=== PATIENT | male | born 1955 | race Caucasian/White ===

== ENCOUNTER 2022-07-05 05:33 | Inpatient (IN) | payer SELFPAY ==
[~2022-07-05] VITALS: Ht 165.1 cm; Wt 91.7 kg
[2022-07-05] MEDS ORDERED: SODIUM CHLORIDE 0.9% 1,000 ML IV ONE ×2 (07:15)
[2022-07-05 08:01] LABS: Basophils # (auto) 0.1 10 ^3/uL (0-0.2); Eosinophils # (auto) 0 10 ^3/uL (0-0.8); Lymphocytes # (auto) 2.3 10 ^3/uL (0.4-5.4); Monocytes # (auto) 1.3 10 ^3/uL (0-1.3)
[2022-07-05 08:04] LABS: Basophils % (auto) 0.6 % (0.0-2.0); Eosinophils % (auto) 0.3 % (0.0-7.0); Hematocrit 52.3 % (41.0-53.0); Hemoglobin 17.8 g/dL (13.5-17.5); Lymphocytes % (auto) 18.2 % (10.0-50.0); Mean Corpuscular Hemoglobin 32.9 pg (28.0-32.0); Mean Corpuscular Hgb Conc. 34.1 g/dL (32.0-36.0); Mean Corpuscular Volume 96.4 fL (80.0-100.0); Monocytes % (auto) 10.4 % (0.0-12.0); Neutrophils # (auto) 9.1 10 ^3/uL (1.6-8.6); Neutrophils % (auto) 70.5 % (37.0-80.0); Nucleated Red Blood Cells % 0.3 %; Red Blood Cells 5.42 10^6/uL (4.5-5.90); Red Cell Distribution Width 13.2 % (11.8-14.3); White Blood Cell 12.8 10^3/uL (4.4-10.8)
[2022-07-05 08:20] LABS: Urine Bacteria NONE SEEN /hpf (None Seen); Urine Blood 1+ /uL (Negative); Urine Mucus MODERATE (None Seen); Urine Specific Gravity 1.035 (1.001-1.035); Urine WBC 1 /hpf (0 - 3)
[2022-07-05] MEDS ORDERED: metroNIDAZOLE 500MG/100ML 100 ML IV ONE (10:15)
[2022-07-05] MEDS ORDERED: cefTRIAXone 1GM/50ML D5W 50 ML IV ONE (10:15)
[2022-07-05 11:19] LABS: Albumin 4.9 g/dL (3.4-5.0); Calcium 9.7 mg/dL (8.5-10.1); Potassium 3.6 mmol/L (3.5-5.1)
[2022-07-05 11:23] LABS: BUN/Creatinine Ratio 28.3; Bilirubin, Total 4.4 mg/dL (0.2-1.0); Total Protein 8.1 g/dL (6.4-8.2)
[2022-07-05] MEDS ORDERED: LACTATED RINGER'S 1,000 ML IV ONE (12:00)
[2022-07-05] MEDS ORDERED: ONDANSETRON HCL 4 MG/2 ML VIAL IV PRN (13:30)
[2022-07-05] MEDS ORDERED: HYDROcodone-ACET 5/325MG TAB PO PRN (13:30)
[2022-07-05] MEDS: metroNIDAZOLE 500MG/100ML 100 ML IV SCH ×2 (13:30→23:50)
[2022-07-05] MEDS ORDERED: DOCUSATE SOD 100 MG CAP PO PRN (13:30)
[2022-07-05] MEDS: SODIUM CHLOR 0.9% PF (SALINE LOCK) 10ML VIAL/SYR IV SCH ×2 (14:00→23:56)
[2022-07-05] MEDS ORDERED: OMNIPAQUE ORAL SOLN 500ml 12mg/ml PO ONE ×2 (20:27→20:28)
[2022-07-05] MEDS ORDERED: IOHEXOL 350 MG/ML 100ML IJ ONE (20:44)
[2022-07-05] MEDS: ENOXAPARIN SOD 40 MG/0.4 ML SYRINGE SC SCH (23:50)
[2022-07-06] MEDS: metroNIDAZOLE 500MG/100ML 100 ML IV SCH ×3 (06:00→22:18)
[2022-07-06] MEDS: SODIUM CHLOR 0.9% PF (SALINE LOCK) 10ML VIAL/SYR IV SCH ×3 (06:03→22:24)
[2022-07-06] MEDS: ACETAMINOPHEN 325 MG TAB PO PRN ×3 (06:03→14:51)
[2022-07-06] MEDS ORDERED: GASTROGRAFIN 120 ML SOL ONE (09:05)
[2022-07-06] MEDS ORDERED: EZ PAQUE SUSP 12OZ BTL ONE (09:05)
[2022-07-06] MEDS: cefTRIAXone 1GM/50ML D5W 50 ML IV SCH (10:22)
[2022-07-06] MEDS: ENOXAPARIN SOD 40 MG/0.4 ML SYRINGE SC SCH (10:22)
[2022-07-06 11:38] VITALS: BP 108/54
[2022-07-06] MEDS ORDERED: TRAZ-184 PO (11:45)
[2022-07-06] MEDS ORDERED: GABA800T97 PO (11:45)
[2022-07-06] MEDS ORDERED: BENA40TA8 PO (11:45)
[2022-07-06] MEDS ORDERED: HYDR25TA5 PO (11:45)
[2022-07-06 11:49] VITALS: BP 108/54
[2022-07-06] MEDS: PANTOPRAZOLE 40 MG/10 ML VIAL INJ IV SCH (13:30)
[2022-07-06] MEDS: D5W/SOD CHL 0.45% 1,000 ML IV SCH ×2 (13:31→20:00)
[2022-07-06 15:22] VITALS: BP 97/50
[2022-07-06 17:01] VITALS: BP 119/68
[2022-07-06] MEDS ORDERED: traZODone HCL 50 MG TAB PO ONE ×2 (21:45→22:16)
[2022-07-06] MEDS ORDERED: GABAPENTIN 400 MG CAP PO SCH (22:00)
[2022-07-06 23:17] VITALS: BP 125/63
[2022-07-07] MEDS: D5W/SOD CHL 0.45% 1,000 ML IV SCH ×2 (04:30→12:00)
[2022-07-07 04:35] VITALS: BP 139/71
[2022-07-07] MEDS: SODIUM CHLOR 0.9% PF (SALINE LOCK) 10ML VIAL/SYR IV SCH ×2 (05:13→15:21)
[2022-07-07] MEDS: metroNIDAZOLE 500MG/100ML 100 ML IV SCH ×2 (05:13→13:30)
[2022-07-07 06:25] LABS: INR 1.04 (0.9-1.15); Partial Thromboplastin Time 32.1 sec (24.6-33.4)
[2022-07-07] MEDS: PANTOPRAZOLE 40 MG/10 ML VIAL INJ IV SCH (08:47)
[2022-07-07] MEDS: cefTRIAXone 1GM/50ML D5W 50 ML IV SCH (08:47)
[2022-07-07] MEDS ORDERED: MIDAZOLAM HCL 2MG/2ML 2ml VIAL (1mg/ml) ONE (08:59)
[2022-07-07] MEDS ORDERED: LIDOCAINE VISCOUS 2% 15ML UD ONE (08:59)
[2022-07-07] MEDS ORDERED: fentaNYL CITRATE 100 MCG/2 ML VL ONE (08:59)
[2022-07-07 09:00] VITALS: BP 117/61
[2022-07-07] MEDS: ENOXAPARIN SOD 40 MG/0.4 ML SYRINGE SC SCH (09:47)
[2022-07-07] MEDS ORDERED: PANT40TA2 PO (10:56)
[2022-07-07] MEDS: diphenhdrAMINE HCL 50 MG/1 ML VL ONE ×2 (11:14→11:15)
[2022-07-07 13:00] VITALS: BP 114/69
[2022-07-07] MEDS ORDERED: SUCR1TAB22 OR (13:32)
[2022-07-07 14:38] VITALS: BP 114/69
[2022-07-07] MEDS ORDERED: SUCRALFATE 1 GM/10 ML ORAL SUSP PO SCH (17:00)
[2022-07-07] MEDS ORDERED: GABAPENTIN 400 MG CAP PO SCH (22:00)
== END 2022-07-07 18:00 | disposition home or self-care (01) | DRG 381 ==
LOC: ER 05:33 → OVERFLOW 13:32 → EAST 07-06 11:15
PROVIDERS: ADMIT Internal Medicine; ATTEND Nurse Practitioner Acute Care
PROC: 0DB68ZX Excision of Stomach, Via Natural or Artificial Opening Endoscopic, Diagnostic (ICD-10-PCS; 2022-07-07)
PROC: 0DB38ZX Excision of Lower Esophagus, Via Natural or Artificial Opening Endoscopic, Diagnostic (ICD-10-PCS; 2022-07-07)
PROC: 0DB98ZX Excision of Duodenum, Via Natural or Artificial Opening Endoscopic, Diagnostic (ICD-10-PCS; principal; 2022-07-07 11:06)
DX: K22.10 Ulcer of esophagus without bleeding (principal); R65.10 Systemic inflammatory response syndrome (SIRS) of non-infectious origin without acute organ dysfunction; K22.2 Esophageal obstruction; K52.9 Noninfective gastroenteritis and colitis, unspecified; E66.9 Obesity, unspecified; E86.0 Dehydration; K21.9 Gastro-esophageal reflux disease without esophagitis; D72.829 Elevated white blood cell count, unspecified; R79.89 Other specified abnormal findings of blood chemistry; K29.80 Duodenitis without bleeding; K29.70 Gastritis, unspecified, without bleeding; I10 Essential (primary) hypertension; Z80.0 Family history of malignant neoplasm of digestive organs; Z82.49 Family history of ischemic heart disease and other diseases of the circulatory system; Z68.33 Body mass index [BMI] 33.0-33.9, adult; Z88.1 Allergy status to other antibiotic agents; Z20.822 Contact with and (suspected) exposure to COVID-19
CPT/HCPCS: 36415; 70490; 71045; 71260; 74177; 74220; 80053; 81001; 84484; 85025; 85610; 85652; 85730; 86141; 86677; 87040; 87426; C9113; G0378; J0696; J2250; J3490

== ENCOUNTER → 2023-03-30 | Outpatient (CLI) | payer OTHER ==
[~2023-03-30] MED LIST: BENA40TA70 PO; GABA800T97 PO; HYDR25TA5 PO; PANT40TA2 PO; SUCR1TAB22 OR; TRAZ-184 PO
[2023-03-30 10:06] LABS: Basophils # (auto) 0.1 10 ^3/uL (0-0.2); Basophils % (auto) 0.9 % (0.0-2.0); Eosinophils # (auto) 0.3 10 ^3/uL (0-0.8); Eosinophils % (auto) 3.6 % (0.0-7.0); Hematocrit 42.3 % (41.0-53.0); Hemoglobin 14.5 g/dL (13.5-17.5); Lymphocytes # (auto) 2.4 10 ^3/uL (0.4-5.4); Lymphocytes % (auto) 26.5 % (10.0-50.0); Mean Corpuscular Hgb Conc. 34.4 g/dL (32.0-36.0); Monocytes # (auto) 0.8 10 ^3/uL (0-1.3); Monocytes % (auto) 9.2 % (0.0-12.0); Neutrophils # (auto) 5.5 10 ^3/uL (1.6-8.6); Neutrophils % (auto) 59.8 % (37.0-80.0); Red Cell Distribution Width 12.9 % (11.8-14.3); White Blood Cell 9.2 10^3/uL (4.4-10.8)
[2023-03-30 10:57] LABS: Urine Bacteria NONE SEEN /hpf (None Seen); Urine Blood Negative /uL (Negative); Urine Clarity Clear (Clear); Urine Color Colorless (Yellow); Urine Hyaline Cast FEW /lpf (0 - 2); Urine Protein, UAD Negative (Negative); Urine Specific Gravity 1.015 (1.001-1.035); Urine Urobilinogen Normal (Negative); Urine WBC 1 /hpf (0 - 3)
[2023-03-30 10:58] LABS: Alanine Aminotransferase 19 U/L (7-40); Albumin 4.3 g/dL (3.2-4.8); Alkaline Phosphatase 52 U/L (46-116); Anion Gap 7 (5-15); Aspartate Aminotransferase 19 U/L (13-40); BUN/Creatinine Ratio 20.5 (10.0-20.0); Blood Urea Nitrogen 27 mg/dL (9-23); Calcium 9.3 mg/dL (8.5-10.1); Carbon Dioxide 31 mmol/L (20-30); Chloride 105 mmol/L (98-107); Cholesterol 156 mg/dL (< 200); Glucose 110 mg/dL (74-106); HDL Cholesterol 31 mg/dL (40-59); LDL Cholesterol 110 mg/dL (< 100); Potassium 3.4 mmol/L (3.5-5.1); Sodium 143 mmol/L (136-145); Triglycerides 73 mg/dL (< 150)
[2023-03-30 10:59] LABS: Bilirubin, Total 0.6 mg/dL (0.2-1.0); Total Protein 6.9 g/dL (5.7-8.2)
== END | disposition home or self-care (01) ==
LOC: LAB 09:45
PROVIDERS: ATTEND Family Medicine
DX: Z00.01 Encounter for general adult medical examination with abnormal findings (principal)
CPT/HCPCS: 36415; 80053; 80061; 81001; 83036; 84153; 85025

== ENCOUNTER → 2023-11-24 | Outpatient (CLI) | payer OTHER ==
[~2023-11-24] MED LIST changes: -BENA40TA70 PO; +BENA40TA71 PO; -SUCR1TAB22 OR; +SUCR1TAB31 OR
== END | disposition home or self-care (01) ==
LOC: LAB 12:47
PROVIDERS: ATTEND Family Medicine
DX: Z12.11 Encounter for screening for malignant neoplasm of colon (principal)
CPT/HCPCS: 82270

== ENCOUNTER → 2023-12-08 | Outpatient (CLI) | payer OTHER ==
[2023-12-08 07:28] LABS: Basophils # (auto) 0.1 10 ^3/uL (0-0.2); Basophils % (auto) 0.9 % (0.0-2.0); Eosinophils # (auto) 0.6 10 ^3/uL (0-0.8); Eosinophils % (auto) 7.6 % (0.0-7.0); Hematocrit 44.5 % (41.0-53.0); Hemoglobin 15.4 g/dL (13.5-17.5); Lymphocytes # (auto) 2.6 10 ^3/uL (0.4-5.4); Lymphocytes % (auto) 33.5 % (10.0-50.0); Mean Corpuscular Hemoglobin 32.9 pg (28.0-32.0); Mean Corpuscular Hgb Conc. 34.5 g/dL (32.0-36.0); Mean Corpuscular Volume 95.2 fL (80.0-100.0); Monocytes # (auto) 0.7 10 ^3/uL (0-1.3); Monocytes % (auto) 8.9 % (0.0-12.0); Neutrophils # (auto) 3.9 10 ^3/uL (1.6-8.6); Neutrophils % (auto) 49.1 % (37.0-80.0); Red Blood Cells 4.67 10^6/uL (4.5-5.90); Red Cell Distribution Width 13.3 % (11.8-14.3); White Blood Cell 7.9 10^3/uL (4.4-10.8)
[2023-12-08 07:54] LABS: Urine Blood Negative /uL (Negative); Urine Clarity Clear (Clear); Urine Color Yellow (Yellow); Urine Protein, UAD 1+ (Negative); Urine Specific Gravity 1.037 (1.001-1.035); Urine Urobilinogen Normal (Negative); Urine pH 5.5 (5.0-9.0)
[2023-12-08 08:05] LABS: Alanine Aminotransferase 22 U/L (7-40); Alkaline Phosphatase 44 U/L (46-116); Anion Gap 6 (5-15); BUN/Creatinine Ratio 19.8 (10.0-20.0); Blood Urea Nitrogen 19 mg/dL (9-23); Calcium 9.4 mg/dL (8.5-10.1); Carbon Dioxide 29 mmol/L (20-30); Chloride 107 mmol/L (98-107); Glucose 113 mg/dL (74-106); LDL Cholesterol 117 mg/dL (< 100); Potassium 3.8 mmol/L (3.5-5.1); Sodium 142 mmol/L (136-145); Triglycerides 103 mg/dL (< 150)
[2023-12-08 08:06] LABS: Albumin 4.1 g/dL (3.2-4.8); Aspartate Aminotransferase 19 U/L (13-40)
[2023-12-08 08:07] LABS: Bilirubin, Total 1.1 mg/dL (0.2-1.0); Cholesterol 170 mg/dL (< 200); HDL Cholesterol 44 mg/dL (40-59); Total Protein 6.4 g/dL (5.7-8.2)
[2023-12-08 08:58] LABS: Uric Acid 6.3 mg/dL (3.7-9.2)
== END | disposition home or self-care (01) ==
LOC: LAB 07:10
PROVIDERS: ATTEND Family Medicine
DX: I10 Essential (primary) hypertension (principal); E78.5 Hyperlipidemia, unspecified; G47.33 Obstructive sleep apnea (adult) (pediatric); I73.9 Peripheral vascular disease, unspecified; K25.9 Gastric ulcer, unspecified as acute or chronic, without hemorrhage or perforation; Z12.5 Encounter for screening for malignant neoplasm of prostate; Z12.11 Encounter for screening for malignant neoplasm of colon; Z79.899 Other long term (current) drug therapy
CPT/HCPCS: 36415; 80053; 80061; 81003; 83036; 84153; 84443; 84550; 85025

== ENCOUNTER 2024-12-11 13:58 | Outpatient (CLI) | payer OTHER | END 2024-12-11 17:00 | disposition home or self-care (01) | LOC: LAB 13:58 | PROVIDERS: ATTEND Family Medicine | DX: Z12.11 Encounter for screening for malignant neoplasm of colon (principal) | CPT/HCPCS: 82270 ==

== ENCOUNTER 2024-12-14 09:08 | Outpatient (CLI) | payer OTHER ==
[2024-12-14 09:43] LABS: Hematocrit 45.6 % (41.0-53.0); Hemoglobin 15.9 g/dL (13.5-17.5); Mean Corpuscular Hemoglobin 32.8 pg (28.0-32.0); Mean Corpuscular Volume 94.1 fL (80.0-100.0); Nucleated Red Blood Cells % 0.0 %
[2024-12-14 09:47] LABS: Urine Protein, UAD TRACE (Negative)
[2024-12-14 10:20] LABS: Alanine Aminotransferase 21 U/L (7-40); Albumin 4.3 g/dL (3.2-4.8); Alkaline Phosphatase 53 U/L (46-116); Anion Gap 10 (5-15); BUN/Creatinine Ratio 18.3 (10.0-20.0); Bilirubin, Total 0.8 mg/dL (0.2-1.0); Blood Urea Nitrogen 19 mg/dL (9-23); Calcium 9.7 mg/dL (8.7-10.4); Carbon Dioxide 30 mmol/L (20-31); Chloride 104 mmol/L (98-107); Cholesterol 153 mg/dL (< 200); Sodium 144 mmol/L (136-145); Total Protein 6.4 g/dL (5.7-8.2); Triglycerides 102 mg/dL (< 150)
[2024-12-14 10:21] LABS: Glucose 115 mg/dL (74-106); HDL Cholesterol 35 mg/dL (40-59); Potassium 3.4 mmol/L (3.5-5.1)
[2024-12-14 10:38] LABS: Uric Acid 7.1 mg/dL (3.7-9.2)
== END 2024-12-14 17:00 | disposition home or self-care (01) ==
LOC: LAB 09:08
PROVIDERS: ATTEND Family Medicine
DX: E78.5 Hyperlipidemia, unspecified (principal); I73.9 Peripheral vascular disease, unspecified; K21.9 Gastro-esophageal reflux disease without esophagitis; Z12.11 Encounter for screening for malignant neoplasm of colon; Z12.5 Encounter for screening for malignant neoplasm of prostate
CPT/HCPCS: 36415; 80053; 80061; 81001; 83036; 84153; 84443; 84550; 85025

== ENCOUNTER 2024-12-29 11:20 | Day surgery (SDC) | payer OTHER ==
[2024-12-27 10:04] LABS: Hematocrit 48.4 % (41.0-53.0); Hemoglobin 16.8 g/dL (13.5-17.5); Mean Corpuscular Hemoglobin 33.0 pg (28.0-32.0); Mean Corpuscular Volume 95.3 fL (80.0-100.0); Nucleated Red Blood Cells % 0.2 %
[2024-12-27 10:14] LABS: Alanine Aminotransferase 21 U/L (7-40); Alkaline Phosphatase 57 U/L (46-116); Anion Gap 8 (5-15); BUN/Creatinine Ratio 14.3 (10.0-20.0); Blood Urea Nitrogen 15 mg/dL (9-23); Calcium 9.9 mg/dL (8.7-10.4); Carbon Dioxide 28 mmol/L (20-31); Chloride 106 mmol/L (98-107); Potassium 3.6 mmol/L (3.5-5.1); Sodium 142 mmol/L (136-145); Total Protein 7.1 g/dL (5.7-8.2)
[2024-12-27 10:16] LABS: Albumin 4.9 g/dL (3.2-4.8); Bilirubin, Total 1.3 mg/dL (0.2-1.0); Glucose 108 mg/dL (74-106)
[2024-12-27 11:05] LABS: Hepatitis B Surface Antigen Negative (Negative)
[2024-12-27 11:44] LABS: INR 0.94 (0.9-1.15); Partial Thromboplastin Time 30.0 SEC (24.5-34.5); Prothrombin Time 10.0 sec (9.3-11.8)
[~2024-12-29] VITALS: Ht 162.6 cm; Wt 98.0 kg
[~2024-12-29 11:20] MED LIST changes: +CYA100I PO; -SUCR1TAB31 OR
[2024-12-29] MEDS ORDERED: SODIUM CHLORIDE LOCK 10 ML ONE (13:27)
[2024-12-29 13:32] VITALS: PULSE 64; RESP 17; O2SAT 96
[2024-12-29] MEDS: diphenhdrAMINE HCL 50 MG/1 ML VL ONE (13:41)
[2024-12-29] MEDS: MIDAZOLAM HCL 5 MG/ML-1ML VIAL ONE (13:41)
[2024-12-29] MEDS: fentaNYL CITRATE 100 MCG/2 ML VL ONE (13:41)
[2024-12-29 14:06] VITALS: PULSE 63; RESP 21; TEMP 97.5; O2SAT 95
--- NOTE | 2024-12-29 14:09 | DVHOP2 ---
Operative Report DATE OF OPERATION: 12/29/24 PROCEDURE: Colonoscopy with hot snare polypectomy. PREOPERATIVE INDICATION: The patient is a 69 -year-old male undergoing colonoscopy for colon cancer screening POSTOPERATIVE DIAGNOSES: 1. There was a 2.5-3 cm sessile multi lobed polyp seen in the base of the cecum that was removed completely in a piecemeal fashion 2. There was a 1.5-2 cm sessile flat benign-appearing polyp seen in the proximal ascending colon that was seen and removed by hot snare polypectomy in a piecemeal fashion 3. Mild scattered diverticular disease most prominent in the sigmoid 4. 1+ internal hemorrhoids otherwise normal examination up to the cecum PROCEDURE PERFORMED BY: Hawa Garcia M.D. SCOPE: Olympus videocolonoscope. ASA CLASS: 2. PREOPERATIVE MEDICATIONS: Versed 5 mg, Fentanyl 75 mcg, Benadryl 50 mg PROCEDURE IN DETAIL: After obtaining an informed consent, the patient was placed on left lateral decubitus position. He was then sedated with the above medications. A rectal examination was performed that was normal. The colonoscope was then passed through the anus into the rectosigmoid and through the descending, transverse, and ascending colon up to the cecum with visualization of the appendiceal orifice, base of the cecum and the ileocecal valve. The colonoscope was then withdrawn. In the base of the cecum there was a 2.5-3 cm sessile multi lobe polyp This was removed completely via hot snare polypectomy in a piecemeal fashion and the specimens were retrieved Patient had another 1.5-2 cm sessile flat benign-appearing proximal ascending colon polyp that was seen and removed via hot snare polypectomy in a piecemeal fashion No other polyps or masses were seen. Patient had mild scattered diverticular disease most prominent in the sigmoid On retroflexion and straight on view he had 1+ internal hemorrhoids. The patient tolerated the procedure well without difficulty. WITHDRAWAL TIME: 15 minutes QUALITY OF THE PREP: [place] Bowel Prep score: 9. COMPLICATIONS : None SPECIMENS: Cecal polyp Ascending colon polyp DISPOSITION: Stable D/C to home PLAN: 1. Repeat colonoscopy base on biopsy result likely in 1-1-1/2 years to re- evaluate polypectomy sites 2. Start with clear liquid diet advance to full liquid and soft mechanical 3. Hold aspirin blood thinners NSAIDs as the patient is at high-risk for possible postbulbar rectal bleeding 4. Outpatient follow up with me in 2-4 weeks to review results and discuss further management HAWA GARCIA MD Dec 29, 2024 14:09
[2024-12-29 14:45] VITALS: BP 145/79; PULSE 65; RESP 16; O2SAT 62
== END 2024-12-29 15:10 | disposition home or self-care (01) ==
LOC: GI 11:20
PROVIDERS: ATTEND Internal Medicine Gastroenterology
DX: R19.5 Other fecal abnormalities (principal); K57.30 Diverticulosis of large intestine without perforation or abscess without bleeding; D12.0 Benign neoplasm of cecum; D12.2 Benign neoplasm of ascending colon; K64.0 First degree hemorrhoids; I10 Essential (primary) hypertension; Z79.899 Other long term (current) drug therapy; Z98.890 Other specified postprocedural states
CPT/HCPCS: 36415; 45385; 80053; 82728; 85025; 85610; 85730; 86706; 87340; 88305; J1200; J2250; J3010; J7030

== ENCOUNTER 2025-02-23 09:25 | Outpatient (CLI) | payer OTHER ==
[2025-02-23 11:16] LABS: Iron 76.0 ug/dL (65-175)
[2025-02-23 11:18] LABS: Total Iron Binding Capacity 314.0 ug/dL (250-425)
[2025-02-23 11:22] LABS: Ferritin 87.7 ng/mL (22-322)
== END 2025-02-23 17:00 | disposition home or self-care (01) ==
LOC: LAB 09:25
PROVIDERS: ATTEND Psychiatry & Neurology Neurology
DX: G61.81 Chronic inflammatory demyelinating polyneuritis (principal); G62.2 Polyneuropathy due to other toxic agents
CPT/HCPCS: 82607; 82728; 82746; 83540; 83550; 84155; 84165